=== PATIENT | female | born 1945 | race Caucasian/White ===

== ENCOUNTER 2019-11-11 08:45 | Day surgery (SDC) | payer OTHER ==
[2019-11-06 16:11] VITALS: BMI 24.0
[2019-11-11 11:37] VITALS: TEMP 98.5
[2019-11-11 12:28] VITALS: BP 144/89; PULSE 62
--- NOTE | 2019-11-13 16:46 | PATH ---
Surgical Pathology Report Patient Name: PATRICIA BOWEN [facility]. Rec. #: [id number] /Age/Gender: 1945 (Age: 73) / F Account: [id number] Location: U-ENDOSCOPY Taken: 11/11/2019 Received: 11/12/2019 Reported: 11/13/2019 Physicians: Tailta De Oliveira M.D. Specimen(s) Received A: DUODENUM SECOND PORTION AND BULB B: ANTRUM Clinical History Occult GI bleed Postoperative diagnosis: Gastritis, hiatal hernia Final Diagnosis A. DUODENUM, SECOND PORTION AND BULB, BIOPSY: DUODENAL MUCOSA WITHOUT SIGNIFICANT PATHOLOGIC FINDINGS. B. STOMACH, ANTRUM, BIOPSY: GASTRIC ANTRAL MUCOSA WITH MILD CHRONIC GASTRITIS. IMMUNOHISTOCHEMICAL STAIN FOR H. PYLORI IS NEGATIVE. Positive and negative controls (internal if applicable) show appropriate results. Electronically Signed Patricia Aguayo M.D. Gross Description A. Received in formalin, labeled "biopsy second portion of duodenum and bulb" are 4 [place], irregular portions of soft tissue ranging from 0.1-0.3 cm. in greatest dimension. The specimens are submitted in toto in one cassette. B. Received in formalin, labeled "biopsy antrum" are 2 [place], irregular portions of soft tissue measuring 0.4 and 0.6 cm. in greatest dimension. The specimens are submitted in toto in one cassette. /11/12/2019 [facility]11/12/2019
== END 2019-11-11 12:48 | disposition home or self-care (01) ==
LOC: JASU-ENDO 08:45
PROVIDERS: ATTEND Internal Medicine Gastroenterology
PROC: 0DB78ZX Excision of Stomach, Pylorus, Via Natural or Artificial Opening Endoscopic, Diagnostic (ICD-10-PCS; principal; 2019-11-11 10:00)
DX: K21.9 Gastro-esophageal reflux disease without esophagitis (principal); K29.50 Unspecified chronic gastritis without bleeding; K44.9 Diaphragmatic hernia without obstruction or gangrene; I10 Essential (primary) hypertension; D64.9 Anemia, unspecified
CPT/HCPCS: 88305-TC; 88342-TC